=== PATIENT | female | born 1990 | race Caucasian/White ===

== ENCOUNTER → 2020-12-24 | Outpatient (CLI) | payer OTHER ==
[2020-12-25 04:06] LABS: RUBEOLA (MEASLES) IGG 39.1 AU/mL (Immune >16.4)
[2020-12-25 09:08] LABS: RUBELLA AB IGG-REFLAB 4.99 index (Immune >0.99)
== END | disposition home or self-care (01) ==
LOC: LABMN 11:23
PROVIDERS: ATTEND Internal Medicine
DX: Z02.1 Encounter for pre-employment examination (principal)
CPT/HCPCS: 86706; 86735; 86762; 86765; 86787